=== PATIENT | female | born 1975 | race Hispanic/Latino ===

== ENCOUNTER 2019-07-03 07:20 | Emergency (ER) | payer SELFPAY ==
[2019-07-03 07:55] LABS: HEMATOCRIT 40.5 % (37.0-47.0); IMMATURE GRANULOCYTES 0.3 % (0.0-5.0); MEAN CELL VOLUME 89.8 fL CALC (80.0-100.0); MEAN CORPUSCULAR HGB 30.2 pG CALC (26.0-32.0); MEAN CORPUSCULAR HGB CONC 33.6 g/dL CAL (32.0-36.0); NEUT# 3.62 thou/uL (2.00-7.15); RED BLOOD COUNT 4.51 mill/uL (4.20-5.60); RED CELL DISTRI WIDTH 13.5 % (11.5-15.5)
[2019-07-03 08:00] LABS: HEMOGLOBIN 13.6 g/dl (12.0-16.0)
[2019-07-03 08:08] LABS: URINE BILIRUBIN - DIPSTICK NEGATIVE (NEGATIVE); URINE BLOOD DIPSTICK TRACE-INTACT (NEGATIVE); URINE COLOR YELLOW; URINE GLUCOSE - DIPSTICK NEGATIVE (NEGATIVE); URINE KETONE NEGATIVE (NEGATIVE); URINE LEUK ESTERASE TRACE (NEGATIVE); URINE NITRITE - DIPSTICK NEGATIVE (Negative); URINE PROTEIN - DIPSTICK NEGATIVE (NEG-TRACE); URINE SPECIFIC GRAVITY 1.025; URINE UROBILINOGEN - DIPSTICK 0.2 E.U./dL (0.2)
[2019-07-03 08:17] LABS: ALBUMIN 4.4 g/dL (3.2-5.0); ALKALINE PHOSPHATASE 95 u/l (38-126); ANION GAP 11 (6-22 (CALC)); BILIRUBIN, TOTAL 0.4 mg/dL (0.0-1.4); BUN 11 mg/dL (7-17); BUN/CREATININE RATIO 19 (12-20 (CALC)); CARBON DIOXIDE 25 mmol/l (22-30); CHLORIDE 107 mmol/l (95-108); CREATININE 0.6 mg/dL (0.5-1.0); GFR > 60 ML/MIN (>=60 (CALC)); GFR FOR AFR.AMER. > 60 ML/MIN (>=60 (CALC)); LIPASE 195 u/l (23-300); POTASSIUM 4.6 mmol/l (3.5-5.1); SGOT/AST 45 u/l (14-36); SODIUM 138 mmol/l (137-146); TOTAL PROTEIN 7.8 g/dL (6.3-8.2)
[2019-07-03] MEDS ORDERED: PROTONIX20 M1 PO (10:02)
[2019-07-03 10:30] VITALS: BP 145/75
[2019-10-14] MEDS ORDERED: PROTONIX20 M1 PO (16:59)
== END 2019-07-03 10:30 | disposition home or self-care (01) | DRG 392 ==
LOC: ED 07:20
PROVIDERS: Family Medicine
DX: R10.13 Epigastric pain (principal); R10.30 Lower abdominal pain, unspecified
CPT/HCPCS: Q9967

== ENCOUNTER 2022-10-07 11:36 | Emergency (ER) | payer SELFPAY ==
[~2022-10-07] VITALS: Ht 147.3 cm; Wt 54.0 kg
[2022-10-07] VITALS (10 sets, daily range): BP systolic 118–145; BP diastolic 62–82
[~2022-10-07 11:36] MED LIST: PROTONIX20 M1 PO
[2022-10-07 12:21] LABS: URINE BLOOD DIPSTICK Trace-intact (NEGATIVE); URINE GLUCOSE - DIPSTICK Negative (NEGATIVE); URINE KETONE Trace mg/dL (NEGATIVE); URINE LEUK ESTERASE Negative (NEGATIVE); URINE NITRITE - DIPSTICK Negative (Negative); URINE PH >=9.0 (4.5-8.0); URINE PROTEIN - DIPSTICK 100 mg/dL (NEG-TRACE); URINE SPECIFIC GRAVITY 1.015; URINE UROBILINOGEN - DIPSTICK 0.2 E.U./dL (0.2)
[2022-10-07 12:23] LABS: URINE COLOR Yellow
[2022-10-07 12:35] LABS: URINE AMORPH SEDIMENT MODERATE hpf (NONE-FEW); URINE RBC 0-2 RBC/hpf (0-5); URINE SQUAMOUS EPITHELIAL CELL FEW EPI/hpf (0-FEW)
[2022-10-07 12:36] LABS: URINE HYALINE CAST FEW lpf (NONE-RARE)
[2022-10-07 12:36] LABS: ALBUMIN 4.6 g/dL (3.2-5.0); ALKALINE PHOSPHATASE 61 u/l (38-126); BILIRUBIN, TOTAL 0.5 mg/dL (0.02-1.3); BUN 21 mg/dL (7-17); BUN/CREATININE RATIO 28 (12-20 (CALC)); CHLORIDE 101 mmol/l (95-108); CREATININE 0.8 mg/dL (0.5-1.0); GFR FOR AFR.AMER. > 60 ML/MIN (>=60 (CALC)); GFR OTHER RACES > 60 ML/MIN (>=60 (CALC)); POTASSIUM 3.9 mmol/l (3.5-5.1); SGOT/AST 43 u/l (14-36); SODIUM 140 mmol/l (137-146); TOTAL PROTEIN 8.2 g/dL (6.3-8.2)
[2022-10-07 12:38] LABS: ANION GAP 12 (6-22 (CALC)); CARBON DIOXIDE 31 mmol/l (22-30)
[2022-10-07 12:44] LABS: BASO% 0.7 % (0-3); EOS% 1.5 % (0-8); HEMOGLOBIN 13.2 g/dl (12.0-16.0); IMMATURE GRANULOCYTES 0.2 % (0.0-5.0); LYMPH% 35.1 % (15-41); MEAN CELL VOLUME 90.9 fL CALC (80.0-100.0); MONO% 6.9 % (2-13); NEUT# 3.06 thou/uL (2.00-7.15); NEUT% 55.6 % (42-76); RED BLOOD COUNT 4.4 mill/uL (4.20-5.60); RED CELL DISTRI WIDTH 12.6 % (11.5-15.5)
[2022-10-07] MEDS ORDERED: ONDANSETRON4 MG PO (13:31)
== END 2022-10-07 14:37 | disposition home or self-care (01) | DRG 392 ==
LOC: ED 11:36
PROVIDERS: Nurse Practitioner
DX: K52.9 Noninfective gastroenteritis and colitis, unspecified (principal); Z20.822 Contact with and (suspected) exposure to COVID-19

== ENCOUNTER 2022-10-15 10:29 | Emergency (ER) | payer SELFPAY ==
[~2022-10-15] VITALS: Ht 147.3 cm; Wt 52.6 kg
[~2022-10-15 10:29] MED LIST changes: +ONDANSETRON4 MG PO
[2022-10-15 11:55] VITALS: BP 136/77
== END 2022-10-15 11:55 | disposition home or self-care (01) | DRG 179 ==
LOC: ED 10:29
DX: U07.1 COVID-19 (principal); J02.9 Acute pharyngitis, unspecified; R09.89 Other specified symptoms and signs involving the circulatory and respiratory systems